=== PATIENT | female | born 1945 | race Caucasian/White ===

== ENCOUNTER → 2016-11-04 | Outpatient (CLI) | payer OTHER ==
[2016-07-06 16:14] VITALS: BP 135/61
[~2016-11-04] MED LIST: NS 100 ML IV 100 ML IV ONE
[2016-11-04 10:10] LABS: CREATININE 0.98 mg/dL (0.55-1.02)
--- NOTE | 2016-11-04 12:14 | CT ---
History: Mass in the ascending aorta by transesophageal echocardiogram. Study: CTA chest with contrast. Sagittal and coronal reformations were provided. Sagittal and elmore l and axial MIPS of the aorta and pulmonary arteries were displayed. Findings: The lungs are grossly clear and there is no pleural effusion. No mediastinal or hilar jayleen opathy is demonstrated. There is no pulmonary embolus. There is fatty infiltration of the liver. The gallbladder is surgically absent. There is atherosclerotic calcification in the aorta without aneur ysm. There is no aortic dissection demonstrated. If no mass or thrombus is demonstrated in the ascen ding aorta. There is apical pleural thickening, right more than left. There is no significant bony a bnormality. Impression: 1. Mild diffuse atherosclerotic calcification in the aorta but no evidence for ascending aortic aneu rysm or mass or thrombus. 2. No evidence for pulmonary embolus 3. Fatty infiltration of the liver 4. Apical pleural thickening and or scarring Reported By:
== END ==
LOC: RAD 09:26
PROVIDERS: ATTEND Internal Medicine Cardiovascular Disease
DX: I77.89 Other specified disorders of arteries and arterioles (principal)
CPT/HCPCS: 36415; 71275; 82565; 84520; A4222

== ENCOUNTER 2023-05-12 13:37 | Observation (INO) ==
[2023-05-12 14:45] VITALS: BMI 24.3
[2023-05-12] MEDS ORDERED: ZOFRAN INJ 4 MG VIAL IVP PRN (16:07)
[2023-05-12] MEDS ORDERED: TORADOL 15 MG VIAL IVP PRN (16:11)
[2023-05-12 16:25] LABS: BASOPHILS % (AUTO) 0.2 % (0.2-1.0); EOSINOPHILS % (AUTO) 0.1 % (0.9-2.9); HEMATOCRIT 36.5 % (36.0-47.0); HEMOGLOBIN 12.6 g/dL (12.0-16.0); LYMPHOCYTES # (AUTO) 0.3 X10^3/uL (1.3-2.9); MEAN CORPUSCULAR HEMOGLOBIN 29.5 pg (27.0-34.0); MEAN CORPUSCULAR HGB CONC 34.4 g/dL (33.0-35.0); MEAN CORPUSCULAR VOLUME 85.6 fL (80.0-100.0); MEAN PLATELET VOLUME 7.8 fL (7.4-11.0); MONOCYTES # (AUTO) 0.4 x10^3/uL (0.3-0.8); MONOCYTES % (AUTO) 5.3 % (0.0-13.0); NEUTROPHILS # (AUTO) 6.1 x10^3/uL (2.2-4.8); NEUTROPHILS % (AUTO) 90.4 % (42.0-75.0); PLATELET COUNT 139 X10^3/uL (150.0-450.0); RED BLOOD COUNT 4.27 X10^6/uL (3.5-5.4); RED CELL DISTRIBUTION WIDTH 13.8 % (11.6-16.5); WHITE BLOOD COUNT 6.7 X10^3/uL (3.6-10.0)
[2023-05-12 16:41] LABS: PLATELET MORPHOLOGY COMMENT NORMAL (NORMAL)
[2023-05-12 16:55] LABS: ALANINE AMINOTRANSFERASE 32 Units/L (12-78); ALBUMIN 3.2 g/dL (3.4-5.0); ALKALINE PHOSPHATASE 80 Units/L (46-116); ASPARTATE AMINO TRANSFERASE 37 Units/L (15-37); BLOOD UREA NITROGEN 19 mg/dL (7-18); CALCIUM 8.2 mg/dL (8.5-10.1); CARBON DIOXIDE 29.4 mmol/L (21-32); CHLORIDE 106 mmol/L (98-107); COR CA(FOR HYPOALB) 8.8 mg/dL (8.5-10.1); CREATININE 1.02 mg/dL (0.55-1.02); GLUCOSE 106 mg/dL (65-99); MAGNESIUM 1.8 mg/dL (2.0-2.9); POTASSIUM 3.9 mmol/L (3.5-5.1); SODIUM 140 mmol/L (136-145); TOTAL PROTEIN 6.6 g/dL (6.4-8.2); eGFR NON BLACK RACES 56 (>60)
[2023-05-12] MEDS ORDERED: CONSULT PHARMACY - POTASSIUM & MAGNESIUM XX SCH (17:00)
[2023-05-12] MEDS: MAG-OX TAB PO SCH ×2 (18:06→20:54)
[2023-05-12] MEDS: NS 1,000 ML IV 1,000 ML IV SCH (18:06)
[2023-05-12] MEDS: PROTONIX INJ 40 MG VIAL IVP SCH (18:06)
[2023-05-12] MEDS ORDERED: OFIRMEV IV 1000 MG VIAL 1,000 MG/100 ML VIAL IV PRN (18:34)
--- NOTE | 2023-05-12 18:41 | DR.H&P ---
H&P - History & Physical for Day of: H&P Date: 05/12/23 - Chief Complaint Chief Complaint: N/V/D, FEVER, CRAMPING ALL OVER - History of Present Illness History of Present Illness: PT IS 77WF, DIRECT ADMIT FROM DR MAYERS OFFICE WITH INTRACTABLE NVD, ONSET LAST PM, AND FEVER>101. PT REPORTS SUDDEN ONSET OF ILLNESS WITH SEVERE CRAMPS TO UPPER AND LOWER EXTREMITIES. FAMILY REPORTS PT WAS VERY WEAK AND LETHARGIC AT HOME. PT HAS PMH OF COPD, HTN, CVA AND GERD. PT ADMITTED FOR TREATMENT AND EVALUATION OF ACUTE ILLNESS. - Past Medical History Past Medical History: Anxiety, Arthritis, COPD, CVA, Hypertension - Past Surgical History Surgical History: Appendectomy, Cholecystectomy, Hysterectomy, Tonsillectomy - Family History Family Medical History: Diabetes Mellitus, Cancer, SD, Heart Failure, Hypertension - Social History Does patient currently use any type of tobacco product: No Have you used tobacco products in the last 12 months: No Type of Tobacco Use: None Does any household member use tobacco: No Alcohol Use: None Drug Use: None - Review of Systems Constitutional: Fever, Chills, Weakness, Malaise Eyes: No Symptoms Reported ENT: Nose Discharge Respiratory: SOB with Excertion Cardiovascular: No Symptoms Reported Gastrointestinal: Nausea, Vomiting, Abdominal Pain, Diarrhea Genitourinary: No Symptoms Reported Musculoskeletal: Back Pain, Leg Pain Skin: No Symptoms Reported Neurological: Weakness - Physical Exam Vital Signs: Vital Signs Temperature 100.2 F Pulse Rate [Left Brachial] 92 Respiratory Rate 20 Blood Pressure [Left Arm] 125/60 O2 Sat by Pulse Oximetry 97 Oriented: Normal Eyes: Normal Nose: Normal Throat: Red Respiratory: RML Diminished, RLL Diminished, ERIK Diminished, LLL Diminished Cardiovascular: Normal : Normal Auscultation: Bowel Sounds: Increased Tenderness: Diffuse Skin: Decreased Turgur Musculoskeletal: Back:Lumbar Psychiatric: Anxiety Affect: Anxious Speech Pattern: Clear, Appropriate - Assessment/Plan (1) Acute gastroenteritis Status: Acute Plan: ADMIT, IV HYDRATION. ELECTROLYTE REPLACEMENT. RESP SWAB ON ADMISSION. CXR ON ADMISSION, RESP CONSULT. IV ROCEPHIN, PPI THERAPY, NAUSEA CONTROL. VERIFY HOME MEDICATION, BP MONITORING (2) Dehydration Status: Acute (3) Hypertension Status: Acute (4) History of CVA (cerebrovascular accident) Status: Acute - Allergies Allergies/Adverse Reactions: Allergies Allergy/AdvReac Type Severity Reaction Status Date / Time alprazolam [From Xanax] Allergy Unknown Verified 11/18/22 07:31 erythromycin base Allergy Unknown Verified 11/18/22 07:31 [From Erythrocin] codeine AdvReac Unknown Verified 11/18/22 07:31 - Medications Home Medications: Home Medications Medication Instructions Recorded Confirmed Estradiol 1 mg PO HS 07/04/16 05/12/23 potassium chloride 10 mEq 10 meq PO HS 07/04/16 05/12/23 capsule,extended release amlodipine 5 mg tablet 5 mg PO QDAY 05/12/23 05/12/23 famotidine 40 mg tablet 40 mg PO QDAY 05/12/23 05/12/23 fluoxetine 10 mg capsule 10 mg PO QDAY 05/12/23 05/12/23 folic acid 1 mg tablet 1 mg PO QDAY 05/12/23 05/12/23 gabapentin 100 mg capsule 300 mg PO TID 05/12/23 05/12/23 meloxicam 15 mg tablet 15 mg PO QDAY 05/12/23 05/12/23 pantoprazole 40 mg tablet,delayed 40 mg PO BID 05/12/23 05/12/23 release Previous Rx's Medication Instructions Recorded aspirin 325 mg tablet,delayed 325 mg PO DAILY ##30 07/06/16 release clopidogrel 75 mg tablet (Plavix) 75 mg PO DAILY 30 days 07/06/16 simvastatin 20 mg tablet 20 mg PO HS ##30 07/06/16
[2023-05-12 19:04] LABS: AMYLASE 67 Units/L (25-115); CREATINE KINASE 75 Units/L (26-192); LIPASE 84 Units/L (73-393)
[2023-05-12] MEDS ORDERED: RESTORIL CAP 15 MG PO PRN (20:05)
[2023-05-12] MEDS: ROCEPHIN VIAL 1 GRAM 1 G in NS 100 ML IV 100 ML IV SCH (20:53)
[2023-05-12] MEDS ORDERED: ESTRACE PO SCH (21:00)
[2023-05-12] MEDS: NEURONTIN CAP 100 MG PO SCH (21:35)
[2023-05-13] MEDS: NS 1,000 ML IV 1,000 ML IV SCH (02:29)
[2023-05-13] MEDS: NEURONTIN CAP 100 MG PO SCH ×2 (05:51→14:45)
[2023-05-13 06:02] LABS: BASOPHILS % (AUTO) 0.5 % (0.2-1.0); EOSINOPHILS % (AUTO) 0.1 % (0.9-2.9); HEMATOCRIT 30.9 % (36.0-47.0); HEMOGLOBIN 10.8 g/dL (12.0-16.0); LYMPHOCYTES # (AUTO) 0.5 X10^3/uL (1.3-2.9); LYMPHOCYTES % (AUTO) 12.4 % (21.0-51.0); MEAN CORPUSCULAR HEMOGLOBIN 29.8 pg (27.0-34.0); MEAN CORPUSCULAR HGB CONC 34.9 g/dL (33.0-35.0); MEAN CORPUSCULAR VOLUME 85.4 fL (80.0-100.0); MEAN PLATELET VOLUME 8.7 fL (7.4-11.0); MONOCYTES # (AUTO) 0.4 x10^3/uL (0.3-0.8); MONOCYTES % (AUTO) 10.1 % (0.0-13.0); NEUTROPHILS # (AUTO) 3.4 x10^3/uL (2.2-4.8); NEUTROPHILS % (AUTO) 76.9 % (42.0-75.0); PLATELET COUNT 112 X10^3/uL (150.0-450.0); RED BLOOD COUNT 3.62 X10^6/uL (3.5-5.4); RED CELL DISTRIBUTION WIDTH 13.8 % (11.6-16.5); WHITE BLOOD COUNT 4.4 X10^3/uL (3.6-10.0)
--- NOTE | 2023-05-13 06:12 | RAD ---
EXAM:Portable chestHISTORY:FeverCOMPARISON:None br.br.br calcified and mildly ectatic. Lungs are well inflated. No acute infiltrates are identified. No pleural effusions are identified. Bony thorax is unremarkable.IMPRESSION:No acute infiltratesTHIS IS AN ELECTRONICALLY VERIFIED FINAL [id number]/[id number] 6:08 AM - Electronically signed by Paul Astudillo MD
[2023-05-13 06:20] LABS: ALANINE AMINOTRANSFERASE 73 Units/L (12-78); ALBUMIN 2.6 g/dL (3.4-5.0); ALKALINE PHOSPHATASE 80 Units/L (46-116); ASPARTATE AMINO TRANSFERASE 114 Units/L (15-37); BLOOD UREA NITROGEN 13 mg/dL (7-18); CALCIUM 7.3 mg/dL (8.5-10.1); CARBON DIOXIDE 27.4 mmol/L (21-32); CHLORIDE 107 mmol/L (98-107); COR CA(FOR HYPOALB) 8.4 mg/dL (8.5-10.1); CREATININE 0.87 mg/dL (0.55-1.02); GLUCOSE 90 mg/dL (65-99); MAGNESIUM 1.8 mg/dL (2.0-2.9); POTASSIUM 3.3 mmol/L (3.5-5.1); SODIUM 140 mmol/L (136-145); TOTAL PROTEIN 5.5 g/dL (6.4-8.2); eGFR NON BLACK RACES > 60 (>60)
[2023-05-13] MEDS ORDERED: CONSULT PHARMACY - POTASSIUM & MAGNESIUM XX SCH (08:00)
[2023-05-13] MEDS ORDERED: NS + KCL 20 MEQ/L 1,000 ML with MAGNESIUM SULFATE 50% INJ VIAL 1 G IV SCH ×2 (08:00)
[2023-05-13] MEDS: PROTONIX INJ 40 MG VIAL IVP SCH (08:57)
[2023-05-13] MEDS: ROCEPHIN VIAL 1 GRAM 1 G in NS 100 ML IV 100 ML IV SCH (08:57)
[2023-05-13] MEDS ORDERED: NORVASC TAB 5 MG PO SCH (09:00)
[2023-05-13] MEDS ORDERED: PROzac PO SCH (09:00)
[2023-05-13] MEDS ORDERED: FOLIC ACID TAB 1 MG PO SCH (09:00)
[2023-05-13] MEDS ORDERED: PEPCID TAB 40 MG PO SCH (09:00)
[2023-05-13] MEDS ORDERED: PLAVIX PO SCH (09:00)
[2023-05-13 09:28] LABS: URIC ACID 4.4 mg/dL (2.6-6.0)
[2023-05-13] MEDS ORDERED: SOLU-Medrol 40 MG VIAL IVP SCH (10:00)
[2023-05-13] MEDS ORDERED: LOVENOX INJ 40 MG SYR SC SCH (10:00)
[2023-05-13 12:13] VITALS: RESP 20
[2023-05-13] MEDS ORDERED: BENTYL CAP 10 MG PO SCH (13:00)
[2023-05-13 17:14] LABS: BILIRUBIN,URINE NEGATIVE (NEGATIVE); BLOOD/HEMOGLOBIN,URINE 1+ (NEGATIVE); GLUCOSE, URINE NEGATIVE (NEGATIVE); KETONES,URINE NEGATIVE (NEGATIVE); LEUKOCYTE ESTERASE ,URINE NEGATIVE (NEGATIVE); NITRITES,URINE NEGATIVE (NEGATIVE); PROTEIN,URINE NEGATIVE (NEGATIVE); UROBILINOGEN,URINE NORMAL (NORMAL)
[2023-05-13 17:23] LABS: APPEARANCE,URINE CLEAR (CLEAR); BACTERIA,URINE TRACE /HPF (NEGATIVE); COLOR,URINE YELLOW (YELLOW); RBC,URINE 0-2 /HPF (0-3); SQUAMOUS EPITHELIAL CELL,UR RARE /HPF (NEGATIVE)
[2023-05-13 18:07] VITALS: BP 101/52; PULSE 79; TEMP 98.4; O2SAT 95
== END 2023-05-13 18:25 | disposition home or self-care (01) ==
LOC: MED/SURG
PROVIDERS: ADMIT Internal Medicine; ATTEND Internal Medicine
DX: I10 Essential (primary) hypertension; R79.82 Elevated C-reactive protein (CRP); R53.1 Weakness; R11.2 Nausea with vomiting, unspecified; F41.8 Other specified anxiety disorders; Z20.822 Contact with and (suspected) exposure to COVID-19; Z86.73 Personal history of transient ischemic attack (TIA), and cerebral infarction without residual deficits; R19.7 Diarrhea, unspecified; R40.4 Transient alteration of awareness; E86.0 Dehydration; R50.9 Fever, unspecified; K52.89 Other specified noninfective gastroenteritis and colitis; K21.9 Gastro-esophageal reflux disease without esophagitis; J44.9 Chronic obstructive pulmonary disease, unspecified